=== PATIENT | female | born 1965 | race Two or more races ===

== ENCOUNTER 2017-06-06 04:26 | Emergency (ER) | payer OTHER ==
[~2017-06-06] VITALS: Ht 157.5 cm; Wt 83.0 kg
--- NOTE | 2017-06-06 04:41 | Emergency Room Report ---
History of Present Illness General Chief Complaint: Abdominal Pain Source: Patient Present Illness HPI Is a 51-year-old female who has psychiatric history with frequent psych admission. She presents with chief complaint abdominal pain. This has been an ongoing problem. She called 911 with chief complaint abdominal pain. She said is all over the place. She was seen at [facility] about a week ago. She said that they did nothing for her. But she did mention that they would not operate on her because her eyes are not yellow. I suspect that she probably had gallstone. History is difficult on this patient because she would go on tangents. Allergies: Coded Allergies: No Known Allergies (Unverified , 06/06/17) Patient History Past Medical History: see triage record, old chart reviewed, psych hx Past Surgical History: none Pertinent Family History: none Social History: Denies: drug use Last Menstrual Period: unk Now: No Immunizations: other Reviewed Nursing Documentation: PMH: Agreed; PSxH: Agreed Nursing Documentation-PMH History Of Psychiatric Problem: Yes - Depression, schizophrenia Review of Systems Eye: Denies: eye pain, blurred vision ENT: Denies: ear pain, nose congestion, throat swelling Respiratory: Denies: cough, shortness of breath Cardiovascular: Denies: chest pain, palpitations Gastrointestinal: Reports: abdominal pain; Denies: diarrhea, nausea, vomiting Musculoskeletal: Denies: back pain, joint pain Skin: Denies: rash Neurological: Denies: headache, numbness Endocrine: Denies: increased thirst, increased urine Hematologic/Lymphatic: Denies: easy bruising All Other Systems: negative except mentioned in HPI Physical Exam Vital Signs Date Time Temp Pulse Resp B/P (MAP) Pulse Ox O2 Delivery O2 Flow Rate FiO2 06/06/17 04:23 98.3 99 18 144/82 98 Room Air 98.2 vitals normal Sp02 EP Interpretation: reviewed, normal General Appearance: well appearing, no apparent distress, alert Head: normocephalic, atraumatic Eyes: bilateral eye PERRL, bilateral eye EOMI ENT: hearing grossly normal, normal pharynx Neck: full range of motion, supple, no meningismus Respiratory: chest non-tender, lungs clear, normal breath sounds Cardiovascular #1: regular rate, rhythm, no murmur Gastrointestinal: normal bowel sounds, non tender, no mass, no organomegaly, no bruit, non-distended Musculoskeletal: back normal, gait/station normal, normal range of motion Psychiatric: mood/affect normal Skin: warm/dry Medical Decision Making Diagnostic Impression: Primary Impression: Abdominal pain Qualified Codes: R10.84 - Generalized abdominal pain Additional Impressions: Cirrhosis of liver Qualified Codes: K74.60 - Unspecified cirrhosis of liver Anemia Qualified Codes: D64.9 - Anemia, unspecified ER Course She presents with abdominal pain and has cirrhosis on the CT scan. This is a chronic problem. Her exam is otherwise soft. No evidence of acute abdomen. She said she feeling better now. She has a lot of psychiatric issue and anxiety but those are at baseline. No criteria for 5150. We'll discharge home. Lab Results Impression labs unremarkable except for anemia CT/MRI/US Diagnostic Results CT/MRI/US Diagnostic Results : Imaging Test Ordered: CT abdomen and pelvis Impression Read by radiologist. Cirrhosis. Last Vital Signs Date Time Temp Pulse Resp B/P (MAP) Pulse Ox O2 Delivery O2 Flow Rate FiO2 06/06/17 04:23 98.3 99 18 144/82 98 Room Air 98.2 Status: improved Disposition: HOME, SELF-CARE Condition: Stable Patient Instructions: Abdominal Pain, Adult Additional Instructions: follow-up with your doctor in 7 days. Return if worse. ROSMERY WIGGINS M.D. Jun 06, 2017 04:41
[2017-06-06 04:44] VITALS: BP 144/82
[2017-06-06 05:04] LABS: BASOPHILS % (AUTO) 1.3 % (0.0-2.0); EOSINOPHILS % (AUTO) 1.3 % (0.0-3.0); HEMATOCRIT 32.2 % (37.0-47.0); HEMOGLOBIN 10.1 G/DL (12.0-16.0); LYMPHOCYTES % (AUTO) 38.9 % (20.0-45.0); MEAN CORPUSCULAR VOLUME 83 FL (80-99); MONOCYTES % (AUTO) 10.5 % (1.0-10.0); PLATELET COUNT 122 K/UL (150-450); RED BLOOD COUNT 3.87 M/UL (4.20-5.40); RED CELL DISTRIBUTION WIDTH 19.8 % (11.6-14.8)
[2017-06-06 05:09] LABS: APPEARANCE,URINE CLEAR; BILIRUBIN, URINE NEGATIVE (NEGATIVE); COLOR,URINE PALE YELLOW; GLUCOSE, URINE (UA) NEGATIVE (NEGATIVE); KETONES,URINE NEGATIVE (NEGATIVE); LEUKOCYTE ESTERASE ,URINE NEGATIVE (NEGATIVE); NITRITE,URINE NEGATIVE (NEGATIVE); PH,URINE 7 (4.5-8.0); PROTEIN,URINE NEGATIVE (NEGATIVE); UROBILINOGEN,URINE NORMAL MG/DL (0.0-1.0)
[2017-06-06 05:16] LABS: ANION GAP 12 mmol/L (5-15); BLOOD UREA NITROGEN 4 mg/dL (7-18); CALCIUM 8.7 MG/DL (8.5-10.1); CARBON DIOXIDE 24 MMOL/L (21-32); CHLORIDE 107 MMOL/L (98-107); CREATININE 0.8 MG/DL (0.55-1.30); POTASSIUM 3.4 MMOL/L (3.5-5.1); SODIUM 143 MMOL/L (136-145)
[2017-06-06 05:27] LABS: ALANINE AMINOTRANSFERASE 47 U/L (12-78); ALBUMIN 3.4 G/DL (3.4-5.0); ALBUMIN/GLOBULIN RATIO 0.9 (1.0-2.7); ALKALINE PHOSPHATASE 129 U/L (46-116); ASPARTATE AMINO TRANSFERASE 60 U/L (15-37); BILIRUBIN,TOTAL 1.2 MG/DL (0.2-1.0)
[2017-06-06 05:33] LABS: BILIRUBIN,DIRECT 0.5 MG/DL (0.0-0.3)
[2017-06-06 06:31] VITALS: BP 121/83
[2017-06-06 06:35] VITALS: BP 121/83
--- NOTE | 2017-06-06 11:49 | Diagnostic Imaging Report ---
Indication: Abdominal pain Technique: Spiral acquisitions obtained through the abdomen and pelvis. No oral contrast utilized, per emergency room physician request No IV contrast utilized, per referring physician request.. Multiplanar reconstructions were generated. Total dose length product 706.81 mGycm. CTDIvol(s) 14.9 mGy. Dose reduction achieved using automated exposure control Comparison: None Findings: Inflammatory changes are seen within the mesenteric root and within the mesentery of the ascending colon. Prominent mesenteric root and right lower quadrant lymph nodes are noted. There is indistinctness of the margins of the fourth portion of the duodenum. There is equivocal slight swelling and indistinctness of the margins of the pancreas. The liver demonstrates surface nodularity. Lack of IV contrast limits assessment of the liver parenchyma. No gross focal abnormality. There is trace ascites fluid. Perigastric and periesophageal varices are noted. The spleen is enlarged, measuring 14.3 cm long axis dimension. Lack of IV contrast limits assessment of the other solid organs.. Gallbladder, bile ducts, adrenals, kidneys are unremarkable. No retroperitoneal mass or adenopathy. The uterus is prominent. No pelvic mass or adenopathy. Vaginal foreign body of uncertain nature is noted. The appendix is normal. No evidence of diverticulosis or diverticulitis. No small bowel distention. No free intraperitoneal air. The included lung bases are clear. The bones are unremarkable Impression: Evidence of hepatic cirrhosis Evidence of portal hypertension, with trace ascites, splenomegaly, and periesophageal perigastric varices Increased attenuation of the fat of the mesenteric root. Probably secondary to the portal hypertension. The possibility of pancreatitis should be considered, but is deemed less likely Slight prominence to the wall of the distal duodenum, probably secondary to portal hypertension, duodenitis cannot completely excludable. Vaginal foreign body, may be a pessary This agrees with the preliminary interpretation provided overnight by [facility]. The CT scanner at [facility] is accredited by the [employer] and the scans are performed using protocols designed to limit radiation exposure to as low as reasonably achievable to attain images of sufficient resolution adequate for diagnostic evaluation.
== END 2017-06-06 06:38 | disposition home or self-care (01) ==
LOC: EDBD 04:26 → EMR 05:09
DX: R10.9 Unspecified abdominal pain (principal); K74.60 Unspecified cirrhosis of liver; D64.9 Anemia, unspecified; F32.9 Major depressive disorder, single episode, unspecified; F20.9 Schizophrenia, unspecified
CPT/HCPCS: 36415; 74176; 80053; 81003; 82248; 83690; 85025; 99284

== ENCOUNTER 2017-06-24 06:58 | Emergency (ER) | payer OTHER ==
[~2017-06-24] VITALS: Ht 154.9 cm; Wt 83.0 kg
[~2017-06-24 06:58] MED LIST: FUROSEMIDE20 M1 ORAL; psych meds
[2017-06-24] MEDS ORDERED: Bacitracin Oint UD TOPIC ONE ×2 (07:07→07:15)
--- NOTE | 2017-06-24 07:09 | Emergency Room Report ---
History of Present Illness General Chief Complaint: Behavioral Complaint Source: Patient Present Illness HPI The patient called the paramedics because of chest pain and shortness of breath. She feels concerned because she lives by herself. Paramedics found that she's called them several times for anxiety in the past and behavioral problems. The patient denies any suicidal or homicidal ideation at this time. She also denies anxiety. She does take medicine for depression. She's not sure what medicine is. They found Lasix at her apartment. She does have swelling in her legs. She denies any calf pain. She has some scratches on her skin. She states her tetanus is up-to-date. She says she was playing with puppy and got bitten. She poorly describes the chest pain. She says it feels better at this time. She smokes cigarettes. She recently fell and fractured her right arm. This was splinted She's not sure why she fell. She denies LOC. The patient states that she feels "high" and drunk. She denies alcohol or other drugs. She says that she smells marijuana coming from other tenants. Her periods are very heavy. Denies dysuria. Menses irregular. She doesn't think she is . Allergies: Coded Allergies: No Known Allergies (Unverified , 06/06/17) Patient History Past Medical History: see triage record Social History: Reports: smoking; Denies: alcohol use, drug use Social History Narrative lives by herself Last Menstrual Period: unk Reviewed Nursing Documentation: PMH: Agreed; PSxH: Agreed Nursing Documentation-PM Past Medical History: No Stated History History Of Psychiatric Problem: Yes Review of Systems All Other Systems: negative except mentioned in HPI Physical Exam Vital Signs Date Time Temp Pulse Resp B/P (MAP) Pulse Ox O2 Delivery O2 Flow Rate FiO2 06/24/17 06:54 98.2 101 18 125/80 93 Room Air 98.2 Sp02 EP Interpretation: reviewed, normal General Appearance: well appearing, no apparent distress, GCS 15 Head: normocephalic Eyes: bilateral eye normal inspection, bilateral eye PERRL, bilateral eye EOMI ENT: moist mucus membranes Neck: supple Respiratory: lungs clear, normal breath sounds Cardiovascular #1: regular rate, rhythm, edema - 1+ bilaterally Cardiovascular #2: 2+ radial (R) Gastrointestinal: normal inspection, normal bowel sounds, non tender, no mass, non-distended Musculoskeletal: back normal, digits/nails normal, gait/station normal, normal range of motion, other - Splint right forearm Neurologic: alert, 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, motor strength/tone normal, sensory intact, cerebellar normal, normal gait, speech normal, oriented - X2 Psychiatric: no suicidal/homicidal ideation, other - singing, some perseveration, no delusions Skin: normal color, warm/dry, abrasions - Left arm and left ankl Medical Decision Making Diagnostic Impression: Primary Impression: Chest pain Qualified Codes: R07.89 - Other chest pain Additional Impressions: Anemia Qualified Codes: D50.0 - Iron deficiency anemia secondary to blood loss ( chronic) Hypokalemia Depression Qualified Codes: F32.9 - Major depressive disorder, single episode, unspecified ER Course Patient is brought in by paramedics. Her initial complaint to them was chest pain but then she says she feels "high". Differential includes exacerbation of depression, schizoaffective disorder, electrolyte imbalance, drug ingestion, medication adverse reaction amongst others. She'll be evaluated with EKG, chest x-ray and labs. There is some evidence of peripheral edema in her lower extremities and there is a h/o taking lasix. EKG is normal. Chest x-ray no infiltrates. Labs with his significant anemia and low potassium. The patient is not orthostatic therefore the anemia is chronic. The patient is given potassium orally here. Patient somewhat improved. No medical emergency at this time. Apparently, her psychiatrist or psychologist is planning on coming to pick her up. Patient stable for outpatient observation and treatment Laboratory Tests Test 06/24/17 07:14 06/24/17 08:05 White Blood Count 3.3 K/UL (4.8-10.8) L Red Blood Count 3.52 M/UL (4.20-5.40) L Hemoglobin 8.6 G/DL (12.0-16.0) L Hematocrit 27.6 % (37.0-47.0) L Mean Corpuscular Volume 78 FL (80-99) L Mean Corpuscular Hemoglobin 24.6 PG (27.0-31.0) L Mean Corpuscular Hemoglobin Concent 31.3 G/DL (32.0-36.0) L Red Cell Distribution Width 17.8 % (11.6-14.8) H Platelet Count 85 K/UL (150-450) L Mean Platelet Volume 9.4 FL (6.5-10.1) Neutrophils (%) (Auto) % (45.0-75.0) Lymphocytes (%) (Auto) % (20.0-45.0) Monocytes (%) (Auto) % (1.0-10.0) Eosinophils (%) (Auto) % (0.0-3.0) Basophils (%) (Auto) % (0.0-2.0) Differential Total Cells Counted 100 Neutrophils % (Manual) 47 % (45-75) Lymphocytes % (Manual) 37 % (20-45) Monocytes % (Manual) 13 % (1-10) H Eosinophils % (Manual) 1 % (0-3) Basophils % (Manual) 2 % (0-2) Band Neutrophils 0 % (0-8) Platelet Estimate Decreased L Platelet Morphology Normal Hypochromasia 2+ Anisocytosis 1+ Microcytosis 1+ Sodium Level 140 MMOL/L (136-145) Potassium Level 3.1 MMOL/L (3.5-5.1) L Chloride Level 108 MMOL/L (98-107) H Carbon Dioxide Level 24 MMOL/L (21-32) Anion Gap 8 mmol/L (5-15) Blood Urea Nitrogen 6 mg/dL (7-18) L Creatinine 0.6 MG/DL (0.55-1.30) Estimate Glomerular Filtration Rate > 60 mL/min (>60) Glucose Level 112 MG/DL (74-106) H Calcium Level 8.0 MG/DL (8.5-10.1) L Total Bilirubin 1.1 MG/DL (0.2-1.0) H Direct Bilirubin 0.4 MG/DL (0.0-0.3) H Aspartate Amino Transferase (AST) 61 U/L (15-37) H Alanine Aminotransferase (ALT) 72 U/L (12-78) Alkaline Phosphatase 145 U/L (46-116) H Total Creatine Kinase 708 U/L (26-308) H Pro-B-Type Natriuretic Peptide 104 pg/mL (0-125) Total Protein 6.9 G/DL (6.4-8.2) Albumin 2.8 G/DL (3.4-5.0) L Globulin 4.1 g/dL Albumin/Globulin Ratio 0.7 (1.0-2.7) L Salicylates Level < 0.2 ug/mL (2.8-20) L Acetaminophen Level < 2 MCG/ML (10-30) L Serum Alcohol < 3 mg/dL Urine Color Yellow Urine Appearance Clear Urine pH 5 (4.5-8.0) Urine Specific [place] 1.020 (1.005-1.035) Urine Protein Negative (NEGATIVE) Urine Glucose (UA) 3+ (NEGATIVE) H Urine Ketones Negative (NEGATIVE) Urine Occult Blood 4+ (NEGATIVE) H Urine Nitrite Negative (NEGATIVE) Urine Bilirubin Negative (NEGATIVE) Urine Urobilinogen Normal MG/DL (0.0-1.0) Urine Leukocyte Esterase Negative (NEGATIVE) Urine RBC 5-10 /HPF (0 - 2) H Urine WBC 0-2 /HPF (0 - 2) Urine Squamous Epithelial Cells Moderate /LPF (NONE/OCC) H Urine Bacteria Few /HPF (NONE) Urine HCG, Qualitative Negative (NEGATIVE) Urine Opiates Screen Negative (NEGATIVE) Urine Barbiturates Screen Negative (NEGATIVE) Phencyclidine (PCP) Screen Negative (NEGATIVE) Urine Amphetamines Screen Negative (NEGATIVE) Urine Benzodiazepines Screen Negative (NEGATIVE) Urine Cocaine Screen Negative (NEGATIVE) Urine Marijuana (THC) Screen Negative (NEGATIVE) EKG Diagnostic Results Rate: normal Rhythm: NSR ST Segments: no acute changes Rhythm Strip Diag. Results EP Interpretation: yes Rhythm: NSR, no PVC's, no ectopy Chest X-Ray Diagnostic Results Chest X-Ray Diagnostic Results : Chest X-Ray Ordered: Yes # of Views/Limited/Complete: 1 View Indication: Other EP Interpretation: Yes Interpretation: no consolidation, no effusion, no pneumothorax, other - rotational changes Impression: No acute disease Electronically Signed by: Efe Marcus MD Last Vital Signs Date Time Temp Pulse Resp B/P (MAP) Pulse Ox O2 Delivery O2 Flow Rate FiO2 06/24/17 09:28 98.3 90 18 119/77 100 Room Air 98.3 Status: improved Disposition: HOME, SELF-CARE Condition: Improved Scripts Potassium Chloride* (K-DUR*) 10 Meq Capsule.er 10 MEQ ORAL TWICE A DAY, #14 TAB 0 Refills Prov: Efe Marcus M.D. 06/24/17 Multivitamin/Iron/Folic Acid (DAILY MULTIVITAMIN-IRON TABLET) 1 Each Tablet 1 EACH PO DAILY, #30 TAB Prov: Efe Marcus M.D. 06/24/17 Efe Marcus M.D. June 24, 2017 07:09
[2017-06-24 07:19] VITALS: BP 128/80
[2017-06-24 07:47] LABS: HEMATOCRIT 27.6 % (37.0-47.0); HEMOGLOBIN 8.6 G/DL (12.0-16.0); MEAN CORPUSCULAR VOLUME 78 FL (80-99); PLATELET COUNT 85 K/UL (150-450); RED BLOOD COUNT 3.52 M/UL (4.20-5.40); RED CELL DISTRIBUTION WIDTH 17.8 % (11.6-14.8); WHITE BLOOD COUNT 3.3 K/UL (4.8-10.8)
[2017-06-24 08:00] LABS: ANION GAP 8 mmol/L (5-15); BLOOD UREA NITROGEN 6 mg/dL (7-18); CARBON DIOXIDE 24 MMOL/L (21-32); CHLORIDE 108 MMOL/L (98-107); CREATININE 0.6 MG/DL (0.55-1.30); POTASSIUM 3.1 MMOL/L (3.5-5.1); SODIUM 140 MMOL/L (136-145)
[2017-06-24 08:16] LABS: ALANINE AMINOTRANSFERASE 72 U/L (12-78); ALBUMIN 2.8 G/DL (3.4-5.0); ALBUMIN/GLOBULIN RATIO 0.7 (1.0-2.7); ALKALINE PHOSPHATASE 145 U/L (46-116); ASPARTATE AMINO TRANSFERASE 61 U/L (15-37); BILIRUBIN,TOTAL 1.1 MG/DL (0.2-1.0); CREATINE KINASE 708 U/L (26-308)
[2017-06-24 08:21] VITALS: BP_SYST 119; BP_SYST 129; BP_DIAS 69; BP_DIAS 77
[2017-06-24 08:21] LABS: BILIRUBIN,DIRECT 0.4 MG/DL (0.0-0.3)
[2017-06-24 08:41] LABS: APPEARANCE,URINE CLEAR; BILIRUBIN, URINE NEGATIVE (NEGATIVE); GLUCOSE, URINE (UA) 3+ (NEGATIVE); KETONES,URINE NEGATIVE (NEGATIVE); LEUKOCYTE ESTERASE ,URINE NEGATIVE (NEGATIVE); NITRITE,URINE NEGATIVE (NEGATIVE); PH,URINE 5 (4.5-8.0); PROTEIN,URINE NEGATIVE (NEGATIVE); UROBILINOGEN,URINE NORMAL MG/DL (0.0-1.0)
[2017-06-24 08:43] LABS: COLOR,URINE YELLOW
[2017-06-24] MEDS ORDERED: POTASSIUM CHLO10 MEQ ORAL (09:11)
[2017-06-24] MEDS ORDERED: DAILY MULTIVIT1 EAC1 PO (09:11)
[2017-06-24] MEDS ORDERED: Mylanta II UD 30ml ORAL ONE (09:15)
[2017-06-24 09:28] VITALS: BP 119/77
--- NOTE | 2017-06-24 10:31 | Diagnostic Imaging Report ---
Indication: Chest pain Technique: XRAY Chest 1v Comparison: None Findings: Heart size within normal limits. Mediastinal contours are sharp. There is slight haziness of the right lung which is likely artifactual related to rotation and overlying soft tissues. There is no definite focal airspace consolidation, pleural effusion or pneumothorax. IMPRESSION: Slight asymmetric haziness of the right lung likely artifactual, related to rotation and overlying soft tissues No definite focal airspace consolidation, pleural effusion or pneumothorax.
--- NOTE | 2017-06-25 14:39 | Cardiology Report ---
APPROVED REPORT EKG Measurement Heart [id number] ID [id number] Normal sinus rhythm Low voltage QRS Borderline ECG
== END 2017-06-24 09:32 | disposition home or self-care (01) ==
LOC: EDBD 06:58 → EMR 07:57
DX: R07.89 Other chest pain (principal); D50.0 Iron deficiency anemia secondary to blood loss (chronic); E87.6 Hypokalemia; F32.9 Major depressive disorder, single episode, unspecified
CPT/HCPCS: 36415; 71045; 80053; 80307; 80329; 81003; 81025; 82248; 82550; 83880; 85007; 85025; 93005; 99284; J8499

== ENCOUNTER 2017-08-01 10:24 | Emergency (ER) | payer OTHER ==
[~2017-08-01] VITALS: Ht 154.9 cm; Wt 86.2 kg
[~2017-08-01 10:24] MED LIST changes: +DAILY MULTIVIT1 EAC1 PO; +POTASSIUM CHLO10 MEQ ORAL
[2017-08-01 11:00] VITALS: BP 135/75
--- NOTE | 2017-08-01 11:07 | Emergency Room Report ---
History of Present Illness General Chief Complaint: Pain Source: Patient Present Illness HPI Patient is a 51-year-old female who presented after increased bilateral lower extremity pain. Patient reported having gradual onset of pain over the past 2 months. Patient reports having increased leg swelling. Patient recently been seen at [facility] and reportedly had been started on medications. Patient reports taking Depakote. She denies any fever. She reported having generalized leg swelling. She denies any shortness of breath or chest discomfort. Allergies: Coded Allergies: No Known Allergies (Unverified , 06/06/17) Patient History Past Medical History: see triage record Reviewed Nursing Documentation: PMH: Agreed; PSxH: Agreed Nursing Documentation-PMH Past Medical History: No History, Except For History Of Psychiatric Problem: Yes - CHITZOPRENIA,DEPRESSION Review of Systems All Other Systems: negative except mentioned in HPI Physical Exam Vital Signs Date Time Temp Pulse Resp B/P (MAP) Pulse Ox O2 Delivery O2 Flow Rate FiO2 08/01/17 10:22 97.6 84 16 135/75 98 Room Air 97.5 General Appearance: well appearing, no apparent distress, alert, GCS 15 Head: normocephalic, atraumatic ENT: hearing grossly normal, normal voice Neck: full range of motion, supple Respiratory: no respiratory distress, speaking full sentences Gastrointestinal: normal inspection, normal bowel sounds, non tender Musculoskeletal: normal inspection, no calf tenderness Neurologic: normal inspection, alert, oriented x3, responsive, normal gait Psychiatric: mood/affect normal Skin: no rash Medical Decision Making Diagnostic Impression: Primary Impression: Pedal edema Additional Impression: UTI (urinary tract infection) ER Course Patient presented for leg swelling. The differential diagnosis included was not limited to the liver disease, congestive heart failure, venous stasis, allergic reaction, among others. Patient has a benign exam and does not appear to require any laboratory testing at this time. The urinalysis showed evidence of urinary infection. Patient the chest x-ray was ordered to rule out pulmonary edema. Chest x-ray one view interpreted by me showed normal cardiac size without evident infiltrate or vascular congestion.The patient is advised to follow up with primary care doctor in 1-2 days. Patient is advised to return if any worsening condition or if any changes in status that are concerning. This report is dictated with [employer] assistant center manager software which may occasionally lead to discrepancies related to use of this software. Labs Test 08/01/17 11:15 Urine Color Brown Urine Appearance Slightly cloudy Urine pH 5 (4.5-8.0) Urine Specific [place] 1.025 (1.005-1.035) Urine Protein 2+ (NEGATIVE) Urine Glucose (UA) Negative (NEGATIVE) Urine Ketones 1+ (NEGATIVE) Urine Occult Blood 5+ (NEGATIVE) Urine Nitrite Negative (NEGATIVE) Urine Bilirubin 1+ (NEGATIVE) Urine Ictotest Positive Urine Urobilinogen 1 MG/DL (0.0-1.0) Urine Leukocyte Esterase 2+ (NEGATIVE) Urine RBC 5-10 /HPF (0 - 2) Urine WBC 5-10 /HPF (0 - 2) Urine Squamous Epithelial Cells Many /LPF (NONE/OCC) Urine Bacteria Few /HPF (NONE) Last Vital Signs Date Time Temp Pulse Resp B/P (MAP) Pulse Ox O2 Delivery O2 Flow Rate FiO2 08/01/17 10:22 97.6 84 16 135/75 98 Room Air 97.5 Status: improved Disposition: HOME, SELF-CARE Condition: Stable Scripts Cephalexin* (KEFLEX*) 500 Mg Capsule 500 MG ORAL EVERY 6 HOURS, #28 CAP Prov: Jatinder Nieto MD 08/01/17 Jatinder Nieto MD Aug 01, 2017 11:07
[2017-08-01] MEDS ORDERED: Ascorbic Acid 500mg tab ORAL ONE (11:15)
[2017-08-01] MEDS ORDERED: Furosemide 40mg tab ORAL ONE (11:15)
[2017-08-01 11:37] LABS: APPEARANCE,URINE SLIGHTLY CLOUDY; BILIRUBIN, URINE 1+ (NEGATIVE); COLOR,URINE BROWN; GLUCOSE, URINE (UA) NEGATIVE (NEGATIVE); KETONES,URINE 1+ (NEGATIVE); LEUKOCYTE ESTERASE ,URINE 2+ (NEGATIVE); NITRITE,URINE NEGATIVE (NEGATIVE); PH,URINE 5 (4.5-8.0); PROTEIN,URINE 2+ (NEGATIVE); UROBILINOGEN,URINE 1 MG/DL (0.0-1.0)
[2017-08-01] MEDS ORDERED: CEPHALEXIN500 MG ORAL (11:43)
[2017-08-01 11:51] VITALS: BP 130/80
--- NOTE | 2017-08-01 12:11 | Diagnostic Imaging Report ---
Indication: Cough Technique: One view of the chest Comparison: 06/24/2017 Findings: Lungs and pleural spaces are clear. Heart size is normal . No significant change Impression: No acute process
== END 2017-08-01 11:48 | disposition home or self-care (01) ==
LOC: EDBD 10:24 → EMR 11:17
DX: R60.0 Localized edema (principal); N39.0 Urinary tract infection, site not specified; M79.605 Pain in left leg; M79.604 Pain in right leg; F20.9 Schizophrenia, unspecified; F32.9 Major depressive disorder, single episode, unspecified
CPT/HCPCS: 71045; 81003; 99283